=== PATIENT | male | born 1980 | race Hispanic/Latino ===

== ENCOUNTER 2017-08-25 21:21 | Emergency (ER) | payer SELFPAY ==
[2017-08-25 21:29] VITALS: BP 172/81; PULSE 86; RESP 17; TEMP 97.4; O2SAT 99
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
== END 2017-08-25 23:04 | disposition home or self-care (01) ==
LOC: C.ER 21:21 → SUPCPDRO 21:21 → C.ER 23:04
DX: G89.29 Other chronic pain (principal); M54.5 Low back pain
CPT/HCPCS: 96372; 99283; J1885